=== PATIENT | female | born 1950 | race Caucasian/White ===

== ENCOUNTER 2024-02-19 11:53 | Outpatient (CLI) | payer MEDICARE ==
[2024-02-19 13:16] LABS: Hemoglobin 12.7 g/dL (12.0-15.5); Mean Corpuscular HGB CONC 31.8 g/dL (32.0-36.0); Mean Corpuscular Hemoglobin 29.1 pg (27.0-33.0); Mean Corpuscular Volume 91.7 fL (81.6-98.3); Mean Platelet Volume 10.1 fL (7.4-10.4); Platelet Count 243 10x3/uL (150-450); RBC Distribution Width 11.9 % (11.5-14.5); Red Blood Cell (RBC) Count 4.36 10x6/uL (3.90-5.03); White Blood Cell (WBC) Count 11.4 10x3/uL (3.5-10.5)
[2024-02-19 13:23] LABS: Prothrombin Time 10.9 sec (9.5-12.1)
[2024-02-19 13:43] LABS: Anion Gap 17 mmol/L (10-20); BUN (Urea Nitrogen) 28 mg/dL (9.8-20.1); Calc. Creatinine Clearance 0 mL/min (70-130); Calcium 10.2 mg/dL (7.8-10.44); Carbon Dioxide 25 mmol/L (23-31); Chloride 102 mmol/L (98-107); Estimated GFR 37; Glucose 109 mg/dL (83-110); Potassium 4.5 mmol/L (3.5-5.1); Sodium 139 mmol/L (136-145)
== END 2024-02-19 11:54 | disposition home or self-care (01) ==
LOC: CSHLAB 11:53
PROVIDERS: ATTEND Orthopaedic Surgery
DX: Z01.818 Encounter for other preprocedural examination (principal); M17.11 Unilateral primary osteoarthritis, right knee
CPT/HCPCS: 80048; 85027; 85610; 87081; 93005; 93010

== ENCOUNTER 2024-02-19 12:30 | Inpatient (IN) | payer MEDICARE ==
[2024-02-19 12:22] VITALS: BMI 34.9
[2024-02-22] MEDS ORDERED: Bupivacaine HCl 0.5%/Epinephrine 1:200,000/PF 30 ml Vial ONE (06:43)
[2024-02-22] MEDS ORDERED: Morphine 10 MG/ML VIAL ONE (06:43)
[2024-02-22] MEDS ORDERED: Ropivacaine 0.2% HCl/PF 0 ML ONE (06:44)
[2024-02-22] MEDS ORDERED: EPINEPHrine 1 MG/ML VIAL ONE ×2 (06:44→07:14)
[2024-02-22] MEDS ORDERED: Ketorolac Tromethamine 30 MG (1 mL) VIAL ONE (06:44)
[2024-02-22] MEDS ORDERED: Tranexamic Acid 1,000 MG/10 ML VIAL ONE (06:51)
[2024-02-22] MEDS ORDERED: fentaNYL 50 mcg/mL 1 mL Vial ONE ×2 (07:13→07:38)
[2024-02-22] MEDS ORDERED: Ropivacaine 0.5% HCl/PF (150 MG/30 ML VIAL) ONE (07:13)
[2024-02-22] MEDS ORDERED: Lidocaine 1% PF 5 ML VIAL ONE ×2 (07:14→07:38)
[2024-02-22] MEDS ORDERED: Ropivacaine 0.2% HCl/PF 20 ML ONE (07:14)
[2024-02-22] MEDS ORDERED: Clindamycin/D5W 900 mg/50 ml Premix Bag ONE (07:17)
[2024-02-22] MEDS ORDERED: Promethazine HCl 25 MG/ML VIAL IM PRN (07:30)
[2024-02-22] MEDS ORDERED: Ropivacaine 0.2% 550 ML 550 ML NERVE BLCK SCH (07:30)
[2024-02-22] MEDS ORDERED: Ondansetron PF 4 MG/2 ML Vial IVP PRN (07:30)
[2024-02-22] MEDS ORDERED: Zolpidem Tartrate 5 MG TAB PO PRN (07:30)
[2024-02-22] MEDS ORDERED: Morphine 4 MG/ML VIAL SLOW IVP PRN (07:31)
[2024-02-22] MEDS ORDERED: Morphine 2 MG/ML VIAL SLOW IVP PRN (07:31)
[2024-02-22] MEDS ORDERED: PROPOFOL 20 ML ONE (07:38)
[2024-02-22] MEDS ORDERED: Tranexamic Acid 1,000 MG in Sodium Chloride 0.9% 100 ML IVPB SCH (07:45)
[2024-02-22] MEDS ORDERED: Hydrocortisone Sod Succ/PF 100 mg/2 ml Vial ONE (07:53)
[2024-02-22] MEDS ORDERED: ePHEDrine Sulfate 50 MG/10 ML VIAL ONE (07:56)
[2024-02-22] MEDS ORDERED: PHENYLEPHRINE-NS 100 MCG/ML 10 ML SYRINGE ONE (08:59)
[2024-02-22] MEDS ORDERED: Ondansetron PF 4 MG/2 ML Vial ONE (08:59)
[2024-02-22] MEDS ORDERED: Fentanyl 250 MCG/5 ML VIAL ONE (09:22)
[2024-02-22] MEDS ORDERED: HYDROcodone/Acetaminophen 5/325 mg Tablet ONE (10:23)
[2024-02-22] MEDS ORDERED: HYDROmorphone 0.5 MG/0.5 ML SYRINGE ONE (11:45)
[2024-02-22] MEDS: Ketorolac Tromethamine 30 MG (1 mL) VIAL IVP SCH (13:03)
[2024-02-22] MEDS: Aspirin 81 mg Enteric Coated Tablet PO SCH (13:06)
[2024-02-22] MEDS: Clindamycin/D5W 900 MG in Premix 1 BAG IVPB SCH (14:24)
[2024-02-22] MEDS: HYDROcodone/Acetaminophen 10/325 mg Tablet PO PRN (15:21)
[2024-02-23] MEDS ORDERED: Morphine 4 MG/ML VIAL SLOW IVP PRN (13:46)
[2024-02-23] MEDS ORDERED: Ipratropium/Albuterol 3 ML NEB NEB PRN (13:59)
[2024-02-23 14:53] LABS: #Basophils 0.04 10x3/uL (0.0-0.2); #Eosinophils 1.21 10x3/uL (0.0-0.5); #Monocytes 0.75 10x3/uL (0.0-1.1); #Neutrophils 8.01 10x3/uL (1.5-8.4); %Basophils 0.3 % (0.0-2.0); %Eosinophils 10.2 % (0.0-6.0); %Lymphocytes 15.2 % (18.0-47.0); %Monocytes 6.3 % (0.0-10.0); %Neutrophils 67.6 % (40.0-75.0); ALT (SGPT) 15 U/L (8-55); AST (SGOT) 25 U/L (5-34); Albumin 3.2 g/dL (3.4-4.8); Alkaline Phosphatase 82 U/L (40-110); Anion Gap 15 mmol/L (10-20); BUN (Urea Nitrogen) 28 mg/dL (9.8-20.1); Bilirubin, Total 0.3 mg/dL (0.2-1.2); Calc. Creatinine Clearance 45 mL/min (70-130); Calcium 8.5 mg/dL (7.8-10.44); Carbon Dioxide 19 mmol/L (23-31); Chloride 110 mmol/L (98-107); Estimated GFR 33; Globulin 2.7 g/dL (2.4-3.5); Glucose 89 mg/dL (83-110); Hematocrit 32.4 % (34.9-44.5); Hemoglobin 9.5 g/dL (12.0-15.5); Mean Corpuscular HGB CONC 29.3 g/dL (32.0-36.0); Mean Corpuscular Hemoglobin 28.4 pg (27.0-33.0); Mean Corpuscular Volume 96.7 fL (81.6-98.3); Platelet Count 169 10x3/uL (150-450); Potassium 3.8 mmol/L (3.5-5.1); Protein, Total 5.9 g/dL (5.8-8.1); RBC Distribution Width 12.1 % (11.5-14.5); Red Blood Cell (RBC) Count 3.35 10x6/uL (3.90-5.03); Sodium 140 mmol/L (136-145); White Blood Cell (WBC) Count 11.9 10x3/uL (3.5-10.5)
[2024-02-23 15:03] LABS: Bilirubin Neg (Negative); Blood, Urine Negative (Negative); Clarity Slightly Cloudy (Clear); Glucose, Urine (Dipstick) Normal (Negative); Ketone, Urine Negative (Negative); Leukocyte 25 (Negative); Nitrite Negative (Negative); Protein, Urine (Dipstick) 30 mg/dl (Neg-Trace); Urobilinogen Normal mg/dL (Less than 2)
[2024-02-23 15:15] LABS: Troponin I 0.012 ng/mL (< 0.028)
[2024-02-23 16:23] LABS: CAUTI Indications for Culture Fever or rigors
[2024-02-23 16:38] LABS: Bacteria/HPF Rare-Few HPF (None Seen); Mucous/LPF 1+ LPF (<2+); RBC/HPF 0-3 HPF (0-3); Urine Culture Reflex No No; WBC/HPF 0-3 HPF (0-3)
[2024-02-23 18:22] LABS: Troponin I 0.013 ng/mL (< 0.028)
[2024-02-23] MEDS: HYDROcodone/Acetaminophen 10/325 mg Tablet PO PRN (20:51)
[2024-02-23 21:28] LABS: Troponin I 0.042 ng/mL (< 0.028)
[2024-02-24] MEDS ORDERED: traMADol HCl 50 MG TAB PO PRN (02:12)
[2024-02-24] MEDS: traMADol HCl 50 MG TAB PO PRN (02:34)
[2024-02-24] MEDS: Sodium Chloride 0.9% 1,000 ML IV SCH (02:36)
[2024-02-25 08:11] LABS: #Basophils 0.03 10x3/uL (0.0-0.2); #Eosinophils 1.59 10x3/uL (0.0-0.5); #Monocytes 0.41 10x3/uL (0.0-1.1); #Neutrophils 5.34 10x3/uL (1.5-8.4); %Basophils 0.4 % (0.0-2.0); %Eosinophils 18.7 % (0.0-6.0); %Lymphocytes 12.8 % (18.0-47.0); %Monocytes 4.8 % (0.0-10.0); %Neutrophils 62.9 % (40.0-75.0); Hematocrit 26.9 % (34.9-44.5); Hemoglobin 8.4 g/dL (12.0-15.5); Mean Corpuscular HGB CONC 31.2 g/dL (32.0-36.0); Mean Corpuscular Volume 92.8 fL (81.6-98.3); Mean Platelet Volume 9.5 fL (7.4-10.4); Platelet Count 143 10x3/uL (150-450); RBC Distribution Width 12.1 % (11.5-14.5); White Blood Cell (WBC) Count 8.5 10x3/uL (3.5-10.5)
[2024-02-25 08:30] LABS: Anion Gap 12 mmol/L (10-20); BUN (Urea Nitrogen) 14 mg/dL (9.8-20.1); Calc. Creatinine Clearance 84 mL/min (70-130); Calcium 8.9 mg/dL (7.8-10.44); Carbon Dioxide 21 mmol/L (23-31); Chloride 110 mmol/L (98-107); Estimated GFR 69; Glucose 93 mg/dL (83-110); Potassium 4.1 mmol/L (3.5-5.1); Sodium 139 mmol/L (136-145)
[2024-02-25] MEDS: Furosemide 40 MG (4 mL) VIAL SLOW IVP SCH (11:14)
[2024-02-25] MEDS: hydrOXYzine 25 MG TAB PO SCH (13:44)
[2024-02-25] MEDS: Gabapentin 300 MG CAP PO SCH (13:44)
[2024-02-25] MEDS: Albuterol 2.5 MG (3 mL) NEB NEB SCH (19:45)
[2024-02-25] MEDS: Amitriptyline HCl 25 MG TAB PO SCH (20:52)
[2024-02-25] MEDS: Methocarbamol 500 MG TAB PO SCH (20:53)
[2024-02-26 07:44] LABS: #Basophils 0.02 10x3/uL (0.0-0.2); #Eosinophils 1.31 10x3/uL (0.0-0.5); #Neutrophils 4.01 10x3/uL (1.5-8.4); %Basophils 0.2 % (0.0-2.0); %Eosinophils 15.8 % (0.0-6.0); %Lymphocytes 27.8 % (18.0-47.0); %Monocytes 7.3 % (0.0-10.0); %Neutrophils 48.5 % (40.0-75.0); Hematocrit 26.8 % (34.9-44.5); Hemoglobin 8.4 g/dL (12.0-15.5); Mean Corpuscular HGB CONC 31.3 g/dL (32.0-36.0); Mean Corpuscular Hemoglobin 28.8 pg (27.0-33.0); Mean Corpuscular Volume 91.8 fL (81.6-98.3); Mean Platelet Volume 9.6 fL (7.4-10.4); Platelet Count 181 10x3/uL (150-450); Red Blood Cell (RBC) Count 2.92 10x6/uL (3.90-5.03); White Blood Cell (WBC) Count 8.3 10x3/uL (3.5-10.5)
[2024-02-26 08:00] LABS: Anion Gap 15 mmol/L (10-20); BUN (Urea Nitrogen) 14 mg/dL (9.8-20.1); Calc. Creatinine Clearance 71 mL/min (70-130); Carbon Dioxide 24 mmol/L (23-31); Chloride 105 mmol/L (98-107); Estimated GFR 57; Glucose 89 mg/dL (83-110); Potassium 3.6 mmol/L (3.5-5.1); Sodium 140 mmol/L (136-145)
[2024-02-26] MEDS: predniSONE 5 MG TAB PO SCH (08:15)
[2024-02-26] MEDS: Doxycycline 100 MG CAP PO SCH (08:15)
[2024-02-26] MEDS: Aspirin Chewable 81 MG TAB PO SCH (08:16)
[2024-02-26] MEDS: Nebivolol HCl 5 MG TAB PO SCH (08:17)
[2024-02-26] MEDS: Furosemide 20 MG TAB PO SCH (08:17)
[2024-02-26] MEDS: Amitriptyline HCl 10 MG TAB PO SCH (08:27)
[2024-02-26] MEDS ORDERED: Furosemide 20 MG TAB PO SCH (09:00)
[2024-02-26] MEDS: Atorvastatin Calcium 10 MG TAB PO SCH ×2 (10:22→22:26)
[2024-02-26 10:31] LABS: Actual Bicarbonate (HCO3a) 24.4 mEq/L (22-28); Analyzer IN Cardio CS ICU; Base Excess (BEa) 0.6 mEq/L (-2.0 to +3.0); CO2 Tension 35.9 mmHg (35.0-45.0); Calcium, Ionized (arterial) 1.16 mmol/L (1.12-1.30); Carboxyhemoglobin (COHb) 1.1 gm% (0.0-3.0); Hematocrit-ABG 28 % (36.0-47.0); Hemoglobin (Hb) 9.4 g/dL (12.0-16.0); O2 Tension (PaO2), arterial 63.5 mmHg (> 70.0); Puncture Site Left Radial artery
[2024-02-26 10:34] LABS: ALV-art Gradient 62.745 mmHg (0-20)
[2024-02-26] MEDS: Hydrocortisone Sod Succ/PF 100 mg/2 ml Vial IVP SCH (13:03)
[2024-02-26] MEDS: Cefepime 2 GM in Sodium Chloride 0.9% 100 ML IVPB SCH (17:13)
[2024-02-26] MEDS: VANCOMYCIN 2 GRAM/400 ML BAG 2 GM in Premix 1 BAG IVPB SCH (18:16)
[2024-02-27 05:05] LABS: #Eosinophils 0.01 10x3/uL (0.0-0.5); #Monocytes 0.32 10x3/uL (0.0-1.1); #Neutrophils 4.82 10x3/uL (1.5-8.4); %Eosinophils 0.2 % (0.0-6.0); %Lymphocytes 15.6 % (18.0-47.0); %Monocytes 5.2 % (0.0-10.0); %Neutrophils 78.5 % (40.0-75.0); Hematocrit 27.5 % (34.9-44.5); Hemoglobin 8.6 g/dL (12.0-15.5); Mean Corpuscular HGB CONC 31.3 g/dL (32.0-36.0); Mean Corpuscular Hemoglobin 28.7 pg (27.0-33.0); Mean Corpuscular Volume 91.7 fL (81.6-98.3); Mean Platelet Volume 9.9 fL (7.4-10.4); Platelet Count 215 10x3/uL (150-450); RBC Distribution Width 11.9 % (11.5-14.5); White Blood Cell (WBC) Count 6.1 10x3/uL (3.5-10.5)
[2024-02-27 05:18] LABS: Vancomycin, Random 27.8 ug/mL (See Comment)
[2024-02-27 05:27] LABS: Anion Gap 15 mmol/L (10-20); BUN (Urea Nitrogen) 17 mg/dL (9.8-20.1); Calc. Creatinine Clearance 80 mL/min (70-130); Calcium 9.3 mg/dL (7.8-10.44); Carbon Dioxide 23 mmol/L (23-31); Chloride 106 mmol/L (98-107); Estimated GFR 66; Glucose 144 mg/dL (83-110); Potassium 4.1 mmol/L (3.5-5.1); Sodium 140 mmol/L (136-145)
[2024-02-27] MEDS ORDERED: hydrOXYzine 25 MG TAB PO PRN (09:09)
[2024-02-27] MEDS ORDERED: Electrolyte Replacement Protocol 1 EACH FS PRN (09:10)
[2024-02-27] MEDS ORDERED: Methocarbamol 500 MG TAB PO PRN (09:14)
[2024-02-27] MEDS: Pantoprazole 40 MG DR.TAB PO SCH (09:44)
[2024-02-27] MEDS: predniSONE 20 MG TAB PO SCH ×2 (09:44→17:09)
[2024-02-27] MEDS ORDERED: Hydrocortisone Sod Succ/PF 100 mg/2 ml Vial IVP SCH (14:00)
[2024-02-27] MEDS: Gabapentin 300 MG CAP PO SCH (15:00)
[2024-02-27] MEDS: Ipratropium/Albuterol 3 ML NEB NEB SCH (15:04)
[2024-02-27] MEDS ORDERED: Vancomycin 1 GM in Sodium Chloride 0.9% 250 ML 250 ML IVPB SCH (18:00)
[2024-02-27] MEDS: Amitriptyline HCl 25 MG TAB PO SCH (21:55)
[2024-02-27] MEDS: Senokot S 8.6-50 MG TAB PO SCH (21:55)
[2024-02-28 04:35] LABS: #Basophils 0.01 10x3/uL (0.0-0.2); #Monocytes 0.48 10x3/uL (0.0-1.1); #Neutrophils 7.06 10x3/uL (1.5-8.4); %Basophils 0.1 % (0.0-2.0); %Lymphocytes 9.2 % (18.0-47.0); %Monocytes 5.7 % (0.0-10.0); %Neutrophils 84.2 % (40.0-75.0); Hemoglobin 8.4 g/dL (12.0-15.5); Mean Corpuscular HGB CONC 31.1 g/dL (32.0-36.0); Mean Corpuscular Hemoglobin 28.4 pg (27.0-33.0); Mean Corpuscular Volume 91.2 fL (81.6-98.3); Mean Platelet Volume 9.4 fL (7.4-10.4); Platelet Count 245 10x3/uL (150-450); Red Blood Cell (RBC) Count 2.96 10x6/uL (3.90-5.03); White Blood Cell (WBC) Count 8.4 10x3/uL (3.5-10.5)
[2024-02-28 04:48] LABS: Anion Gap 15 mmol/L (10-20); BUN (Urea Nitrogen) 23 mg/dL (9.8-20.1); Calc. Creatinine Clearance 64 mL/min (70-130); Calcium 9.3 mg/dL (7.8-10.44); Carbon Dioxide 23 mmol/L (23-31); Chloride 106 mmol/L (98-107); Estimated GFR 50; Glucose 182 mg/dL (83-110); Magnesium 1.9 mg/dL (1.6-2.6); Phosphorus 3.6 mg/dL (2.3-4.7); Potassium 3.7 mmol/L (3.5-5.1); Sodium 140 mmol/L (136-145)
[2024-02-28] MEDS: Magnesium 2 GM/50 ML(in water) 2 GM in Premix 1 BAG IVPB SCH (08:40)
[2024-02-28] MEDS: Pantoprazole 40 MG DR.TAB PO SCH (08:45)
[2024-02-28] MEDS: Nebivolol HCl 5 MG TAB PO SCH (08:45)
[2024-02-29 04:41] LABS: #Basophils 0.02 10x3/uL (0.0-0.2); #Monocytes 0.52 10x3/uL (0.0-1.1); #Neutrophils 8.47 10x3/uL (1.5-8.4); %Basophils 0.2 % (0.0-2.0); %Lymphocytes 11.6 % (18.0-47.0); %Neutrophils 81.8 % (40.0-75.0); Hematocrit 30.3 % (34.9-44.5); Hemoglobin 9.8 g/dL (12.0-15.5); Mean Corpuscular HGB CONC 32.3 g/dL (32.0-36.0); Mean Corpuscular Hemoglobin 30.1 pg (27.0-33.0); Mean Corpuscular Volume 92.9 fL (81.6-98.3); Platelet Count 298 10x3/uL (150-450); RBC Distribution Width 12.4 % (11.5-14.5); Red Blood Cell (RBC) Count 3.26 10x6/uL (3.90-5.03); White Blood Cell (WBC) Count 10.4 10x3/uL (3.5-10.5)
[2024-02-29 04:59] LABS: Anion Gap 18 mmol/L (10-20); BUN (Urea Nitrogen) 27 mg/dL (9.8-20.1); Calc. Creatinine Clearance 61 mL/min (70-130); Calcium 9.7 mg/dL (7.8-10.44); Carbon Dioxide 22 mmol/L (23-31); Chloride 107 mmol/L (98-107); Estimated GFR 48; Glucose 134 mg/dL (83-110); Magnesium 2.5 mg/dL (1.6-2.6); Potassium 3.9 mmol/L (3.5-5.1); Sodium 143 mmol/L (136-145)
[2024-02-29] MEDS: predniSONE 20 MG TAB PO SCH (09:56)
[2024-03-01 10:52] VITALS: BP 98/52; TEMP 98.2
== END 2024-03-01 12:23 | DRG 469 ==
LOC: CSHTELE 02-22 05:54 → INTOOBSV 02-22 05:54 → CSHTELE 02-22 12:51 → OBSVTOIN 02-24 09:39
PROVIDERS: ADMIT Orthopaedic Surgery; ATTEND Hospitalist
PROC: 0SRC0J9 Replacement of Right Knee Joint with Synthetic Substitute, Cemented, Open Approach (ICD-10-PCS; principal; 2024-02-22)
PROC: 4A033R1 Measurement of Arterial Saturation, Peripheral, Percutaneous Approach (ICD-10-PCS; 2024-02-26)
DX: M17.11 Unilateral primary osteoarthritis, right knee (principal); G92.8 Other toxic encephalopathy; J96.01 Acute respiratory failure with hypoxia; K51.90 Ulcerative colitis, unspecified, without complications; N17.9 Acute kidney failure, unspecified; E87.20 Acidosis, unspecified; L40.9 Psoriasis, unspecified; J44.9 Chronic obstructive pulmonary disease, unspecified; F32.A Depression, unspecified; I95.9 Hypotension, unspecified; E87.70 Fluid overload, unspecified; I12.9 Hypertensive chronic kidney disease with stage 1 through stage 4 chronic kidney disease, or unspecified chronic kidney disease; N18.2 Chronic kidney disease, stage 2 (mild); G89.4 Chronic pain syndrome; E66.01 Morbid (severe) obesity due to excess calories; R53.81 Other malaise; Z91.041 Radiographic dye allergy status; Z88.0 Allergy status to penicillin; Z91.048 Other nonmedicinal substance allergy status
CPT/HCPCS: 36415; 36416; 36600; 70450; 71045; 80048; 80053; 80202; 81001; 82805; 83735; 84100; 84145; 84484; 85025; 87040; 93005; 93010; 94640; 94760; 94762; A4306; C1776; J0171; J0692; J1171; J1720; J1885; J1940; J2270; J2405; J2704; J2795; J3010; J3370; J3475; J3490; J7030; J7512; J7611; J7620